=== PATIENT | male | born 1990 | race Caucasian/White ===

== ENCOUNTER 2023-08-08 17:32 | Emergency (ER) | payer BC ==
[~2023-08-08] VITALS: Ht 180.3 cm; Wt 99.8 kg
[2023-08-08 17:45] VITALS: BP 124/82; PULSE 66; RESP 18; TEMP 98.6; O2SAT 99
[2023-08-08] MEDS ORDERED: CYCL10TA33 PO (18:11)
[2023-08-08] MEDS ORDERED: LIDO4CRE22 TP (18:11)
[2023-08-08 18:18] VITALS: BP 122/81; PULSE 78; RESP 16; TEMP 98; O2SAT 99
== END 2023-08-08 18:18 | disposition home or self-care (01) ==
LOC: MED 17:32
DX: M54.50 Low back pain, unspecified (principal); Z79.899 Other long term (current) drug therapy
CPT/HCPCS: 81025; 99283